=== PATIENT | female | born 1990 | race Caucasian/White ===

== ENCOUNTER 2017-04-15 23:47 | Emergency (ER) | payer OTHER ==
[~2017-04-15] VITALS: Ht 170.2 cm; Wt 65.0 kg
[2017-04-15 23:54] VITALS: PULSE 111; RESP 18; TEMP 98.4; O2SAT 98
[2017-04-16 02:37] LABS: AUTOMATED NEUTROPHIL # 6.5 TH/MM3 (1.8-7.7); BASOPHIL # 0.1 TH/MM3 (0-0.2); BASOPHIL % 1.2 % (0.0-2.0); EOSINOPHIL % 0.2 % (0.0-4.0); HEMATOCRIT 34.8 % (35.0-46.0); HEMO FLAGS DIFF FINAL; LYMPH % 16.6 % (9.0-44.0); LYMPHOCYTE # 1.6 TH/MM3 (1.0-4.8); MEAN CELL VOLUME 83.9 FL (80.0-100.0); MEAN CORPUSCULAR HEMOGLOBIN 27.6 PG (27.0-34.0); MONO % 16.4 % (0.0-8.0); NEUT % 65.6 % (16.0-70.0); PLATELET COUNT 185 TH/MM3 (150-450); RED BLOOD COUNT 4.15 MIL/MM3 (4.00-5.30); RED CELL DISTRIBUTION WIDTH 14.1 % (11.6-17.2); WHITE BLOOD COUNT 9.9 TH/MM3 (4.0-11.0)
[2017-04-16 02:47] LABS: ALT (GPT) 20 U/L (10-53); ANION GAP 6 MEQ/L (5-15); AST (GOT) 14 U/L (15-37); BICARBONATE 25.7 MEQ/L (21.0-32.0); BLOOD UREA NITROGEN 10 MG/DL (7-18); CHLORIDE 109 MEQ/L (98-107); GLOMERULAR FILTRATION RATE 115 ML/MIN (>89); POTASSIUM 3.7 MEQ/L (3.5-5.1); SODIUM (NA) 141 MEQ/L (136-145)
[2017-04-16 02:49] LABS: ACETAMINOPHEN LESS THAN 2.0 MCG/ML (10.0-30.0); ALKALINE PHOSPHATASE 68 U/L (45-117); TOTAL BILIRUBIN ADULT 0.5 MG/DL (0.2-1.0)
--- NOTE | 2017-04-16 02:52 | PD ---
HPI Chief Complaint: Altered Mental Status Time Seen by Provider: 00:07 Travel History International Travel<30 days: No Contact w/Intl Traveler<30days: No Traveled to known affect area: No History of Present Illness HPI 26-year-old female presents to the emergency department by [place] police for evaluation of confusion. Patient reportedly was found wandering around [facility] trying to get into lock doors. Patient reportedly had just been evaluated at [facility] for unknown reason and was brought to the emergency department for further evaluation. Patient here reports that she is visiting from [facility] that she will disappear at any time as she may be raptured. She reports that we should watch her closely and she will just disappear. Patient states that she really doesn't like it here that she likes happened better. Patient reports that she's happy to help us with whatever we need. Patient is willing to allow us to examine her and collect blood work while she is here but she may go right back to [facility] and not wait for her results. Patient does not report wanting to harm herself or others. Patient denies any pain or injury. Patient is otherwise unable or unwilling to provide any history or information. [facility] Past Medical History Narrative Medical Patient denies past medical history; reportedly last period was 04/14/17; denies surgery; admits to alcohol use tobacco use and substance use; nursing notes reviewed Medical History: Denies Significant Hx Tetanus Vaccination: Unknown Influenza Vaccination: No ?: Unknown LMP: 04/14/17 Para: 1 Past Surgical History Surgical History: No Previous Surgery Social History Alcohol Use: Yes (OCC.) Tobacco Use: Yes Substance Use: Yes (PT STATES SHE USES GOOD ONES) Allergies-Medications (Allergen,Severity, Reaction): Uncoded Allergies: UNKNOWN (Allergy, Unknown, 04/16/17) Reported Meds & Prescriptions Reported Meds & Active Scripts Active No Active Prescriptions or Reported Medications Review of Systems ROS Limitations: Clinical Condition, Poor Historian Except as stated in HPI: all other systems reviewed are Neg Physical Exam Narrative GENERAL: Well-developed well-nourished pleasant female in no acute distress no respiratory distress; GCS [address] and time SKIN: Warm and dry. HEAD: Atraumatic. Normocephalic. No scalp soft tissue swelling and ecchymosis abrasion or laceration. EYES: Pupils equal and round. Extraocular muscles intact. No scleral icterus. No injection or drainage. ENT: No nasal bleeding or discharge. Mucous membranes pink and moist. Airway is patent. NECK: Trachea midline. No JVD. Supple nontender to direct palpation along the cervical spine and no meningismus or nuchal rigidity. CARDIOVASCULAR: Regular rate and rhythm. RESPIRATORY: No accessory muscle use. Clear to auscultation. Breath sounds equal bilaterally. GASTROINTESTINAL: Abdomen soft, non-tender, nondistended. Hepatic and splenic margins not palpable. MUSCULOSKELETAL: Extremities without clubbing, cyanosis, or edema. No obvious deformities. NEUROLOGICAL: Awake and alert. No obvious cranial nerve deficits. Motor grossly within normal limits. Five out of 5 muscle strength in the arms and legs. Normal speech. PSYCHIATRIC: Cooperative mood and affect; poor insight and judgment. Data Data Last Documented VS Vital Signs Date Time Temp Pulse Resp B/P Pulse Ox O2 Delivery O2 Flow Rate FiO2 04/16/17 18:16 98.5 82 18 100/67 96 04/16/17 14:33 Room Air Orders Complete Blood Count With Diff (04/16/17 00:07) Comprehensive Metabolic Panel (04/16/17 00:07) Ed Urine Pregnancytest Poc (04/16/17 00:07) Psych Screen (04/16/17 00:07) Drug Screen, Random Urine (04/16/17 00:07) Alcohol (Ethanol) (04/16/17 00:07) Tylenol (Acetaminophen) (04/16/17 00:07) Salicylates (Aspirin) (04/16/17 00:07) Diet Regular Basic (04/16/17 Breakfast) Diet Regular Basic (04/16/17 Lunch) Labs Laboratory Tests Test 04/16/17 04/16/17 01:50 08:36 White Blood Count 9.9 TH/MM3 Red Blood Count 4.15 MIL/MM3 Hemoglobin 11.5 GM/DL Hematocrit 34.8 % Mean Corpuscular Volume 83.9 FL Mean Corpuscular Hemoglobin 27.6 PG Mean Corpuscular Hemoglobin 33.0 % Concent Red Cell Distribution Width 14.1 % Platelet Count 185 TH/MM3 Mean Platelet Volume 9.9 FL Neutrophils (%) (Auto) 65.6 % Lymphocytes (%) (Auto) 16.6 % Monocytes (%) (Auto) 16.4 % Eosinophils (%) (Auto) 0.2 % Basophils (%) (Auto) 1.2 % Neutrophils # (Auto) 6.5 TH/MM3 Lymphocytes # (Auto) 1.6 TH/MM3 Monocytes # (Auto) 1.6 TH/MM3 Eosinophils # (Auto) 0.0 TH/MM3 Basophils # (Auto) 0.1 TH/MM3 CBC Comment DIFF FINAL Differential Comment Sodium Level 141 MEQ/L Potassium Level 3.7 MEQ/L Chloride Level 109 MEQ/L Carbon Dioxide Level 25.7 MEQ/L Anion Gap 6 MEQ/L Blood Urea Nitrogen 10 MG/DL Creatinine 0.62 MG/DL Estimat Glomerular Filtration 115 ML/MIN Rate Random Glucose 102 MG/DL Calcium Level 8.7 MG/DL Total Bilirubin 0.5 MG/DL Aspartate Amino Transf 14 U/L (AST/SGOT) Alanine Aminotransferase 20 U/L (ALT/SGPT) Alkaline Phosphatase 68 U/L Total Protein 7.2 GM/DL Albumin 3.4 GM/DL Salicylates Level 3.1 MG/DL Acetaminophen Level LESS THAN 2.0 MCG/ML Ethyl Alcohol Level LESS THAN 3 MG/DL Urine Opiates Screen POS Urine Barbiturates Screen NEG Urine Amphetamines Screen POS Urine Benzodiazepines Screen POS Urine Cocaine Screen NEG Urine Cannabinoids Screen POS MDM Medical Decision Making Medical Screen Exam Complete: Yes Emergency Medical Condition: Yes Medical Record Reviewed: Yes Interpretation(s) CBC & BMP Diagram 04/16/17 01:50 Vital Signs Date Time Temp Pulse Resp B/P Pulse Ox O2 Delivery O2 Flow Rate FiO2 04/16/17 00:00 109 18 100 04/15/17 23:54 98.4 111 18 98 poc hcg: negative alcohol: less than 3, not elevated Differential Diagnosis Altered mental status, paranoid schizophrenia, psychosis, substance ingestion, mood disorder Narrative Course patient is cooperative; willing to allow specimen collection; voicing no concerns or complaints; patient appears to be experiencing visual and partially audible hallucinations appears to be out of touch with reality concerning for psychosis versus mood disorder versus malingering as patient unreliable to care for herself well Gomez act patient. Patient resting quietly sleeping easily awakened again talks of [employer] [facility] resulted patient has not produced urine specimen for urine drug screen but other values are in normal range At this point in time patient resting comfortably; case discussed with psych screener; urine drug screen is pending however patient is otherwise medically cleared for psych evaluation Diagnosis Primary Impression: Mood disorder Scripts No Active Prescriptions or Reported Meds Digna Hays MD Apr 16, 2017 02:52
[2017-04-16 05:31] VITALS: BP 139/56; PULSE 80; RESP 18; O2SAT 100
[2017-04-16 09:08] LABS: AMPHETAMINE, URINE POS (NEG); BARBITURATES, URINE NEG (NEG); COCAINE, URINE NEG (NEG)
[2017-04-16 10:48] VITALS: BP 107/62; PULSE 99; RESP 16; TEMP 96.2; O2SAT 100
[2017-04-16 14:33] VITALS: BP 100/67; PULSE 82; RESP 18; TEMP 98.5; O2SAT 96
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
[2017-04-16 18:16] VITALS: BP 100/67; TEMP 98.5
== END 2017-04-16 18:45 | disposition home or self-care (01) ==
LOC: NEPC 23:47 → NEPJ 04-16 18:45
DX: F39 Unspecified mood [affective] disorder (principal); F43.25 Adjustment disorder with mixed disturbance of emotions and conduct; F12.90 Cannabis use, unspecified, uncomplicated; F15.90 Other stimulant use, unspecified, uncomplicated; Z72.0 Tobacco use; Z76.5 Malingerer [conscious simulation]
CPT/HCPCS: 80053; 80307; 84703; 85025; 99284